=== PATIENT | female | born 1950 | race Caucasian/White ===

== ENCOUNTER 2017-10-08 00:01 | Inpatient (IN) | payer OTHER ==
[~2017-10-08] VITALS: Ht 162.6 cm; Wt 90.1 kg
[2017-10-08 17:38] LABS: BASE EXCESS 6.4 mEq/L (-3 to +3); BICARBONATE 33.9 mEq/L (22-26); CARBOXY HGB 2.8 % (0-5); PCO2 60 mm Hg (35-45); PO2 315 mm Hg (80-100); pH 7.36 (7.35-7.45)
[2017-10-08 17:39] LABS: COMMENTS - BLOOD GASES A+C+; DEVICE NRBM; FI02 100 %; O2 FLOW 15 L/MIN; SITE RR; TOTAL RESP RATE 17 resp/min
[2017-10-08 17:57] LABS: TROP-I INTERPRETATION NEGATIVE; TROPONIN-I 0.02 ng/mL (0.0-0.30)
[2017-10-08] MEDS ORDERED: RAMIPRIL5 MG PO (18:41)
[2017-10-08] MEDS ORDERED: ONDANSETRON HCL4 MG PO (18:41)
[2017-10-08] MEDS ORDERED: DILTIAZEM 24HR120 MG PO (18:42)
[2017-10-08] MEDS ORDERED: ROSUVASTATIN CA10 MG PO (18:43)
[2017-10-08] MEDS ORDERED: INCRUSE ELLI62.5 MCG IH (18:43)
[2017-10-08] MEDS ORDERED: PROAIR HFA8.5 GM IH (18:45)
[2017-10-08] MEDS ORDERED: PANTOPRAZOLE SO40 MG PO (18:45)
[2017-10-08] MEDS ORDERED: LINZESS145 MCG PO (18:47)
[2017-10-08] MEDS ORDERED: ADVIL200 MG PO (18:48)
[2017-10-08] MEDS ORDERED: DOMPERIDONE PO (18:50)
[2017-10-08] MEDS ORDERED: VITAMIN D31000 UNIT PO (18:51)
[2017-10-08] MEDS ORDERED: PROMETHAZINE HC25 M1 PO (18:53)
[2017-10-08] MEDS ORDERED: MULTI-VITAMIN1 EAC3 PO (18:57)
[2017-10-08 20:45] VITALS: BP 106/66
[2017-10-08 22:36] LABS: CHLORIDE 101 MEQ/L (99-109); CREATININE 0.8 MG/DL (0.6-1.3); GFR ESTIMATE (CALCULATED) > 59 mL/min/; GLUCOSE 107 mg/dL (70-99); POTASSIUM 4.1 MEQ/L (3.7-5.4); SODIUM 144 MEQ/L (136-147); UREA NITROGEN (BUN) 9 mg/dL (9-23)
[2017-10-08 22:49] LABS: THYROTROPIN (TSH) 2.4 MIU/L (0.4-5.5)
[2017-10-09 00:02] LABS: TROP-I INTERPRETATION NEGATIVE; TROPONIN-I 0.02 ng/mL (0.0-0.30)
[2017-10-09 00:35] VITALS: BP 114/56
[2017-10-09 01:23] LABS: APPEARANCE SL.HAZY ((CLEAR)); BILIRUBIN NEGATIVE; BLOOD SMALL; COLOR YELLOW ((YELLOW)); GLUCOSE (STRIP) NEGATIVE; KETONES NEGATIVE; LEUKOCYTES SMALL; NITRITE NEGATIVE; PROTEIN (STRIP) NEGATIVE; SPECIFIC GRAVITY 1.036 (1.000-1.030); UROBILINOGEN 0.2 MG/DL (0.2-1.0)
[2017-10-09 01:30] LABS: BACTERIA NONE SEEN /HPF; EPITHELIAL CELLS 1+ /HPF; MUCUS TRACE /LPF; RED BLOOD CELLS 0-5 /HPF (0-5); UCUL ADDED? YES
[2017-10-09 04:54] VITALS: BP 101/53
[2017-10-09 05:59] LABS: HEMATOCRIT 47.9 % (36.0-46.0); HEMOGLOBIN 14.4 G/DL (11.9-15.5); MCH 29.1 PG (29.0-34.0); MCHC 30.1 G/DL (30.0-36.0); MCV 96.8 FL (83-99); PLATELET COUNT 341 K/uL (156-360); RBC DIS.WIDTH-CV 14.3 % (11.8-14.6); RBC DIS.WIDTH-SD 50.7 % (39-53); RED BLOOD COUNT 4.95 M/uL (3.80-5.20); WHITE BLOOD COUNT 10.6 K/uL (4.1-10.2)
[2017-10-09 06:11] LABS: TROP-I INTERPRETATION NEGATIVE; TROPONIN-I 0.02 ng/mL (0.0-0.30)
[2017-10-09 06:21] LABS: CHLORIDE 99 MEQ/L (99-109); CREATININE 0.9 MG/DL (0.6-1.3); GFR ESTIMATE (CALCULATED) > 59 mL/min/; POTASSIUM 3.8 MEQ/L (3.7-5.4); SODIUM 142 MEQ/L (136-147); UREA NITROGEN (BUN) 13 mg/dL (9-23)
[2017-10-09 06:24] LABS: GLUCOSE 187 mg/dL (70-99)
[2017-10-09 07:25] VITALS: BP 130/72
[2017-10-09 11:43] VITALS: BP 124/81
[2017-10-09 17:05] VITALS: BP 124/69
[2017-10-09 19:15] VITALS: BP 143/73
[2017-10-10 00:20] VITALS: BP 110/57
[2017-10-10 04:55] VITALS: BP 110/63
[2017-10-10 06:01] LABS: CHLORIDE 93 MEQ/L (99-109); CREATININE 0.8 MG/DL (0.6-1.3); GFR ESTIMATE (CALCULATED) > 59 mL/min/; POTASSIUM 3.8 MEQ/L (3.7-5.4); SODIUM 140 MEQ/L (136-147); UREA NITROGEN (BUN) 15 mg/dL (9-23)
[2017-10-10 06:04] LABS: GLUCOSE 111 mg/dL (70-99)
[2017-10-10 07:21] VITALS: BP 118/71
[2017-10-10 10:20] VITALS: BP 117/70
[2017-10-10 14:57] VITALS: BP 141/77
[2017-10-10 19:10] VITALS: BP 130/74
[2017-10-11] VITALS (7 sets, daily range): BP systolic 108–156; BP diastolic 58–82
[2017-10-12 04:00] VITALS: BP 124/72
[2017-10-12 05:34] LABS: HEMATOCRIT 50.4 % (36.0-46.0); HEMOGLOBIN 15.5 G/DL (11.9-15.5); MCH 29.2 PG (29.0-34.0); MCHC 30.8 G/DL (30.0-36.0); MCV 95.1 FL (83-99); PLATELET COUNT 361 K/uL (156-360); RBC DIS.WIDTH-CV 13.9 % (11.8-14.6); RBC DIS.WIDTH-SD 48.7 % (39-53); WHITE BLOOD COUNT 11.1 K/uL (4.1-10.2)
[2017-10-12 05:57] LABS: ALBUMIN 4.2 G/DL (3.2-4.8); ALKALINE PHOSPHATASE 61 IU/L (3-129); ALT (GPT) 18 IU/L (3-49); AST (GOT) 18 IU/L (2-34); CHLORIDE 92 MEQ/L (99-109); CREATININE 0.8 MG/DL (0.6-1.3); GFR ESTIMATE (CALCULATED) > 59 mL/min/; GLUCOSE 107 mg/dL (70-99); POTASSIUM 4.3 MEQ/L (3.7-5.4); SODIUM 139 MEQ/L (136-147); TOTAL BILIRUBIN 0.5 MG/DL (0.0-1.0); TOTAL PROTEIN 6.4 G/DL (6.4-8.3); UREA NITROGEN (BUN) 13 mg/dL (9-23)
[2017-10-12 08:42] VITALS: BP 125/82
[2017-10-12 11:30] VITALS: BP 115/81
[2017-10-12 15:06] LABS: APPEARANCE CLEAR ((CLEAR)); BILIRUBIN NEGATIVE; BLOOD NEGATIVE; COLOR YELLOW ((YELLOW)); GLUCOSE (STRIP) NEGATIVE; KETONES NEGATIVE; LEUKOCYTES TRACE; NITRITE NEGATIVE; PROTEIN (STRIP) NEGATIVE; SPECIFIC GRAVITY 1.009 (1.000-1.030); UROBILINOGEN 0.2 MG/DL (0.2-1.0)
[2017-10-12 15:10] LABS: BACTERIA NONE SEEN /HPF; EPITHELIAL CELLS RARE /HPF; MUCUS NONE SEEN /LPF; RED BLOOD CELLS 0-5 /HPF (0-5); UCUL ADDED? NO; WHITE BLOOD CELLS 0-5 /HPF (0-5)
[2017-10-12 15:50] VITALS: BP 135/78
[2017-10-12 19:45] VITALS: BP 121/80
[2017-10-13 00:46] VITALS: BP 126/92
[2017-10-13 05:10] VITALS: BP 122/70
[2017-10-13 05:20] LABS: BASOPHIL (%) 0.3 % (0-1); EOSINOPHIL (%) 0 % (0-5); HEMATOCRIT 52.2 % (36.0-46.0); HEMOGLOBIN 16.4 G/DL (11.9-15.5); IMMATURE GRANULOCYTE (%) 0.5 % (0.0-0.7); LYMPHOCYTE (%) 17.8 % (15-42); LYMPHOCYTE COUNT 2.1 K/uL (1.0-2.8); MCH 28.8 PG (29.0-34.0); MCHC 31.4 G/DL (30.0-36.0); MCV 91.6 FL (83-99); MONOCYTE (%) 7.1 % (3-12); MONOCYTE COUNT 0.8 K/uL (0-0.8); NEUTROPHIL (%) 74.3 % (45-76); NEUTROPHIL COUNT 8.7 K/uL (1.8-6.4); PLATELET COUNT 393 K/uL (156-360); RBC DIS.WIDTH-CV 13.2 % (11.8-14.6); RBC DIS.WIDTH-SD 44.8 % (39-53); WHITE BLOOD COUNT 11.7 K/uL (4.1-10.2)
[2017-10-13 05:58] LABS: ALBUMIN 4.4 G/DL (3.2-4.8); ALKALINE PHOSPHATASE 64 IU/L (3-129); ALT (GPT) 16 IU/L (3-49); AST (GOT) 16 IU/L (2-34); CHLORIDE 91 MEQ/L (99-109); CREATININE 0.8 MG/DL (0.6-1.3); GFR ESTIMATE (CALCULATED) > 59 mL/min/; GLUCOSE 150 mg/dL (70-99); POTASSIUM 4.2 MEQ/L (3.7-5.4); SODIUM 136 MEQ/L (136-147); TOTAL PROTEIN 7.1 G/DL (6.4-8.3); UREA NITROGEN (BUN) 19 mg/dL (9-23)
[2017-10-13 06:05] LABS: TOTAL BILIRUBIN 0.7 MG/DL (0.0-1.0)
[2017-10-13 08:04] VITALS: BP 126/79
[2017-10-13] MEDS ORDERED: LASIX40 MG PO (11:05)
[2017-10-13] MEDS ORDERED: LOPRESSOR25 MG PO (11:05)
[2017-10-13] MEDS ORDERED: AMOX TR-K CLV1 EAC4 PO (11:05)
[2017-10-13] MEDS ORDERED: DULERA 100 MCG/13 GM IH (11:05)
[2017-10-13] MEDS ORDERED: PREDNISONE10 MG PO (11:12)
== END 2017-10-13 18:11 | disposition home or self-care (01) | DRG 291 ==
LOC: EME 16:44 → EDOF 19:37 → 4EAST 19:37 → ENRESERV 19:37 → 4EAST 20:30 → ENPENDDIS 10-13 → 4EAST 10-13 18:11
PROVIDERS: Emergency Medicine; Family Medicine; Hospitalist
DX: I11.0 Hypertensive heart disease with heart failure (principal); J96.21 Acute and chronic respiratory failure with hypoxia; I50.9 Heart failure, unspecified; J44.1 Chronic obstructive pulmonary disease with (acute) exacerbation; E78.5 Hyperlipidemia, unspecified; I27.20 Pulmonary hypertension, unspecified; M19.90 Unspecified osteoarthritis, unspecified site; K21.9 Gastro-esophageal reflux disease without esophagitis; R91.1 Solitary pulmonary nodule; T38.0X5A Adverse effect of glucocorticoids and synthetic analogues, initial encounter; I49.3 Ventricular premature depolarization; E07.9 Disorder of thyroid, unspecified; E66.9 Obesity, unspecified; R11.0 Nausea; R73.9 Hyperglycemia, unspecified; Z82.49 Family history of ischemic heart disease and other diseases of the circulatory system; Z88.6 Allergy status to analgesic agent; Z88.8 Allergy status to other drugs, medicaments and biological substances; Z99.81 Dependence on supplemental oxygen; Z87.891 Personal history of nicotine dependence; Z79.52 Long term (current) use of systemic steroids; Z79.899 Other long term (current) drug therapy; Z68.36 Body mass index [BMI] 36.0-36.9, adult; Z90.49 Acquired absence of other specified parts of digestive tract
CPT/HCPCS: 36415; 36600; 71045; 71275; 80048; 80053; 80061; 80076; 81003; 82803; 83605; 83735; 83880; 84443; 84484; 85025; 85027; 85379; 87086; 93005; 93306; 93970; 94640; 94640 76; 94760; 94799; 99202; 99281; 99285; J1644; J1940; J2930; J7512; Q0169